=== PATIENT | male | born 1970 | race Caucasian/White ===

== ENCOUNTER 2022-04-23 19:00 | Emergency (ER) | payer OTHER ==
[~2022-04-23] VITALS: Ht 188 cm; Wt 99.8 kg
[2022-04-23] MEDS ORDERED: FLOMAX0.4 MG PO (21:43)
[2022-04-23] MEDS ORDERED: AMOX TR-K CLV1 EAC1 PO (21:44)
== END 2022-04-23 22:49 | disposition home or self-care (01) ==
LOC: ED 19:00
DX: T63.461A Toxic effect of venom of wasps, accidental (unintentional), initial encounter (principal); L03.113 Cellulitis of right upper limb; Z79.899 Other long term (current) drug therapy
CPT/HCPCS: 96372; 99283; J0696; J3301